=== PATIENT | male | born 1980 | race Caucasian/White ===

== ENCOUNTER 2019-09-10 15:38 | Emergency (ER) | payer MEDICAID ==
[~2019-09-10] VITALS: Ht 167.6 cm; Wt 89.4 kg
[2019-09-10 15:45] VITALS: BP 125/68; Ht 167.6 cm; Wt 89.4 kg
== END 2019-09-10 17:21 | disposition home or self-care (01) ==
LOC: ED 15:38
DX: S62.620A Displaced fracture of middle phalanx of right index finger, initial encounter for closed fracture (principal); W23.0XXA Caught, crushed, jammed, or pinched between moving objects, initial encounter; Y93.89 Activity, other specified; Y92.89 Other specified places as the place of occurrence of the external cause; Y99.8 Other external cause status